=== PATIENT | female | born 1995 | race African-American/Black ===

== ENCOUNTER 2022-11-05 05:54 | Emergency (ER) | payer SELFPAY ==
[2022-11-05] VITALS (14 sets, daily range): BP systolic 108–141; BP diastolic 66–82; PULSE 64–99; RESP 16–31; TEMP 36.6; O2SAT 96–100
--- NOTE | ~2022-11-05 | XR_ITS ---
EXAMINATION: XR chest 2V DATE: 11/05/2022 06:30 INDICATION: Left-sided chest pain TECHNIQUE: PA and lateral views of the chest are obtained. COMPARISON: None available FINDINGS: The lungs are free of acute opacities. No pleural effusion or pneumothorax. The cardiomedia stinal silhouette is normal. The visualized bones and soft tissues are unremarkable. IMPRESSION: 1. No acute cardiopulmonary abnormality. Reviewed, dictated and finalized at location A.
--- NOTE | 2022-11-05 05:56 | ECG_ITS ---
Measurements Intervals [place] Rate: 112 P: 60 NE: 142 QRS: 26 QRSD: 113 T: 32 QT: 328 QTc: 450 Interpretive Statements SINUS TACHYCARDIA NO PREVIOUS ECG AVAILABLE FOR COMPARISON Electronically Signed On 11-05-2022 12:16:41 CDT by Dayana Givens M.D.
[2022-11-05 06:12] LABS: Basophils Percent Auto 0.4 % (0.2-1.2); Eosinophils Absolute Auto 0.2 K/mm3 (0-0.3); Eosinophils Percent Auto 1.4 % (0-4.4); Hematocrit 41.1 % (37.0-47.0); Hemoglobin 14.1 g/dL (12.0-15.0); Immature Granulocyte Absolute 0.03 K/mm3 (0.00-0.031); Immature Granulocyte Percent A 0.3 % (0-0.5); Lymphocytes Absolute Auto 4.56 K/mm3 (0.9-3.2); Lymphocytes Percent Auto 41.1 % (18.3-44.2); Mean Corpuscular HGB Conc 34.3 g/dl (32-36); Mean Corpuscular Hemoglobin 31.4 pg (26-34); Mean Corpuscular Volume 91.5 fl (80-100); Mean Platelet Volume 9.2 fl (7.4-10.4); Monocytes Absolute Auto 0.6 K/mm3 (0.1-0.6); Monocytes Percent Auto 5.4 % (2.6-8.5); Neutrophils Absolute Auto 5.7 K/mm3 (1.3-6.7); Neutrophils Percent Auto 51.4 % (45.5-73.1); Platelet Count Result 327 k/mm3 (150-375); Red Blood Count 4.49 M/mm3 (4.2-5.4); Red Cell Distribution Width 11.4 % (11.5-14.5); White Blood Count 11.1 K/mm3 (4.5-10.0)
[2022-11-05 06:26] LABS: Alanine Aminotransferase 21 U/L (6-35); Albumin Level 4.8 g/dL (3.5-5.1); Alkaline Phosphatase 44 U/L (38-126); Anion Gap 11 mmol/L (8-16); Aspartate Amino Transferase 20 U/L (14-36); Bilirubin,Total 0.4 mg/dL (0.2-1.3); Blood Urea Nitrogen 12 mg/dL (7-17); Calcium 9.5 mg/dL (8.4-10.2); Carbon Dioxide 23 mmol/L (22-30); Chloride 103 mmol/L (98-107); Estimated CRCL calculation 94 ml/min; Estimated Glomerular Filt Rate > 60; Glucose 145 mg/dL (65-110); Lipase 148 U/L (23-300); Potassium 3.3 mmol/L (3.4-5.0); Sodium 137 mmol/L (137-145)
[2022-11-05 06:38] LABS: Troponin I < 0.012 ng/mL (0.000-0.034)
[2022-11-05] MEDS: ASPIRIN 81 MG CHEWABLE TABLET 324 MG PO (06:54)
[2022-11-05] MEDS: POTASSIUM CHLORIDE 20 MEQ PACKET (FOR LIQUID) 40 MEQ PO (07:31)
--- NOTE | 2022-11-05 07:42 | ED.CHESTPAIN ---
HPI - Chest Pain General Chief Complaint: Chest Pain Stated Complaint: chest pain x3 days Time Seen by Provider: 11/05/22 07:00 History of Present Illness HPI narrative: 27-year-old female presented to the emergency department for evaluation of left-sided chest pain. Patient states few days ago she was having some left-sided chest pressure. Patient states that she has had intermittent worsening left-sided chest pain. Patient states she also does have a history of anxiety and due to concern over her acute illness she has had increased anxiety attacks. Patient has no prior history of PE or DVT. Patient states she has had some lower calf pain intermittently. Patient denies being on any form of hormone replacement or control. Patient has no prior history of cancer. Related Data Allergies Allergy/AdvReac Type Severity Reaction Status Date / Time No Known Allergies Allergy Verified 11/05/22 06:57 Review of Systems Review of Systems: All systems reviewed & are unremarkable except as noted in HPI and below Exam Narrative: APPEARANCE: Well appearing, no pain, no distress, well-nourished. HEAD: normocephalic, atraumatic. EYES: PERRLA/EOMI, conjunctivae clear. NOSE: Normal no drainage NECK: Supple. No adenopathy, no masses. RESPIRATORY: Airway patent, respirations nonlabored. Clear to auscultation bilaterally, no rales, rhonchi, wheezing. CARDIOVASCULAR: Regular rate and rhythm without murmurs rubs or gallops. To palpation ABDOMINAL: Soft, nontender, nondistended, normal bowel sounds MUSCULOSKELETAL: Moves all extremities. Strength/ROM intact, No edema, No calf tenderness. NEURO: Alert. Cranial nerves II through XII intact. Grossly intact SKIN: Warm, dry. Normal Color Course Course Emergency Course: 27-year-old female presented to the emergency department for evaluation of left-sided chest pain that radiates down her left arm. X-ray was ordered to evaluate for pneumonia pneumothorax and chest x-ray is normal-appearing. EKG was ordered to evaluate for evidence of cardiac arrhythmia or ACS and EKG shows no evidence acute STEMI. D-dimer was ordered to evaluate for risk of pulmonary embolism. At time of evaluation patient has been treated with aspirin but is declining needing any additional medications for pain control or for anxiety control. Patient was updated on the pending work-up. EKG showed normal sinus rhythm. Patient is afebrile with no leukocytosis. Patient's D-dimer was not elevated. Patient's potassium was 3.0 this was replaced orally. Patient had delta troponins that were negative. Chest x-ray shows no acute cardiopulmonary normality. Lipase was negative. Patient was updated on the results of the work-up and was encouraged of close follow-up with her primary care physician. Vital Signs Vital signs: Vital Signs Temperature 98 F 11/05/22 06:08 Pulse Rate 99 11/05/22 06:08 Respiratory Rate 20 11/05/22 06:08 Blood Pressure 141/82 H 11/05/22 06:08 Pulse Oximetry 100 11/05/22 06:08 Oxygen Delivery Room Air 11/05/22 06:08 Temperature 98 F 11/05/22 06:08 Pulse Rate 80 11/05/22 10:15 Respiratory Rate 16 11/05/22 10:15 Blood Pressure 108/66 11/05/22 10:15 Pulse Oximetry 100 11/05/22 10:15 Oxygen Delivery Room Air 11/05/22 06:08 MDM - Chest Pain Differential Diagnosis Differential diagnosis: Likely pneumothorax, stable angina, atypical chest pain, costochondritis, chest pain and biliary colic Lab Data Attestation: I reviewed the patient's lab results. 11/05/22 06:05 11/05/22 06:05 Labs: Lab Results 11/05/22 11/05/22 Range/Units 06:05 08:49 WBC 11.1 H (4.5-10.0) K/mm3 RBC 4.49 (4.2-5.4) M/mm3 Hgb 14.1 (12.0-15.0) g/dL Hct 41.1 (37.0-47.0) % MCV 91.5 (80-100) fl MCH 31.4 (26-34) pg MCHC 34.3 (32-36) g/dl RDW 11.4 L (11.5-14.5) % Plt Count 327 (150-375) k/mm3 MPV 9.2 (7.4-10.4) fl
[2022-11-05 08:53] LABS: Magnesium 1.9 mg/dL (1.6-2.3)
[2022-11-05 09:09] LABS: Prothrombin Time 13.3 Seconds (11.1-14.7)
[2022-11-05 09:23] LABS: Troponin I 0.013 ng/mL (0.000-0.034)
[2022-11-05 09:56] LABS: D Dimer 0.32 ug/mL (<0.48)
== END 2022-11-05 10:15 | disposition home or self-care (01) ==
PROVIDERS: Preventive Medicine Aerospace Medicine; Emergency Provider Emergency Medicine
DX: R07.89 Other chest pain (principal); F41.9 Anxiety disorder, unspecified
CPT/HCPCS: 36415; 71046; 80053; 83690; 83735; 84443; 84484; 85025; 85380; 85610; 85730; 93005; 99284; A9270

== ENCOUNTER 2023-08-04 00:31 | Emergency (ER) | payer SELFPAY ==
--- NOTE | 2023-08-04 | ECG_ITS ---
Measurements Intervals [place] Rate: 151 P: 68 [place]: 132 QRS: 15 QRSD: 83 T: 54 QT: 303 QTc: 482 Interpretive Statements SINUS TACHYCARDIA DELAYED PRECORDIAL R/S TRANSITION NONSPECIFIC ST-T WAVE ABNORMALITY- INF/HIGH LAT LEADS BASELINE WANDER- I, III, AVL, AVF, V3 ABNORMAL ECG COMPARED TO ECG 11/05/2022 06:00:10 HEART RATE HAS INCREASED Electronically Signed On 08-04-2023 6:41:46 BUSINESS CHANGE MANAGER by Nick Erwin D.O.
--- NOTE | ~2023-08-04 | XR_ITS ---
Clinical Indication: Chest pain PA and lateral views of the chest: Comparison: 11/05/2022 Findings: The lungs are clear, without evidence of focal consolidation or pleural effusion. Cardiome diastinal silhouette is within normal limits. Bones and soft tissues are unremarkable. Impression: Normal chest. Reviewed, dictated and finalized at [facility]. COATER Impression: Normal chest.
--- NOTE | ~2023-08-04 | CT_ITS ---
Clinical Indication: Chest pain, shortness of breath CT Scan of the Chest, Abdomen, and Pelvis with Contrast: Technique: Contiguous sections were acquired throughout the chest, abdomen, and pelvis after intraven ous administration of 100 cc of Omnipaque 350. Dose reduction technique was used on this scan by ruth mcclouding automated exposure control and iterative reconstruction technique. The dose-length product (DL P) was 1144.67 mGy-cm. Findings: There is no evidence of any significant mediastinal, hilar or axillary lymphadenopathy. The mediastin al soft tissues appear normal. No pulmonary embolus identified. No aortic aneurysm or dissection. There is no evidence of pleural or pericardial effusion. The lungs are clear. No pulmonary nodules or infiltrates are noted. The liver, pancreas, gallbladder, adrenals and kidneys are within normal limits. Splenic cystic lesio n noted. No evidence of aortic aneurysm. No lymphadenopathy. No bowel obstruction or bowel wall thickening. There is no evidence to suggest acute appendicitis. Urinary bladder is unremarkable. No pelvic mass seen. No ascites. Impression: No significant abnormalities seen. Reviewed, dictated and finalized at [facility]. ICATION DEVELOPMENT INTERN Impression: No significant abnormalities seen.
[2023-08-04 00:35] VITALS: BP 146/113; PULSE 154; RESP 18; TEMP 36.8; O2SAT 100
--- NOTE | 2023-08-04 00:35 | ECG_ITS ---
Measurements Intervals [place] Rate: 89 P: 40 [place]: 148 QRS: 6 QRSD: 89 T: 40 QT: 356 QTc: 435 Interpretive Statements SINUS RHYTHM NORMAL ECG COMPARED TO ECG 11/05/2022 06:00:10 SINUS RHYTHM NOW PRESENT Electronically Signed On 08-04-2023 6:17:16 CELLULAR EQUIPMENT REPAIRER by Nick Erwin D.O.
[2023-08-04 00:54] VITALS: PULSE 120
[2023-08-04 00:55] VITALS: O2SAT 100
[2023-08-04 00:58] VITALS: BP 120/71; PULSE 115; RESP 30; TEMP 36.6; O2SAT 100
[2023-08-04 01:01] LABS: Basophils Percent Auto 0.5 % (0.2-1.2); Eosinophils Absolute Auto 0.1 K/mm3 (0-0.3); Eosinophils Percent Auto 1.3 % (0-4.4); Hematocrit 43.4 % (37.0-47.0); Hemoglobin 14.6 g/dL (12.0-15.0); Immature Granulocyte Absolute 0.02 K/mm3 (0.00-0.031); Immature Granulocyte Percent A 0.2 % (0-0.5); Lymphocytes Absolute Auto 2.98 K/mm3 (0.9-3.2); Lymphocytes Percent Auto 35.4 % (18.3-44.2); Mean Corpuscular HGB Conc 33.6 g/dl (32-36); Mean Corpuscular Hemoglobin 30.7 pg (26-34); Mean Corpuscular Volume 91.4 fl (80-100); Mean Platelet Volume 9.3 fl (7.4-10.4); Monocytes Absolute Auto 0.4 K/mm3 (0.1-0.6); Monocytes Percent Auto 5.1 % (2.6-8.5); Neutrophils Absolute Auto 4.8 K/mm3 (1.3-6.7); Neutrophils Percent Auto 57.5 % (45.5-73.1); Platelet Count Result 408 k/mm3 (150-375); Red Blood Count 4.75 M/mm3 (4.2-5.4); Red Cell Distribution Width 11.2 % (11.5-14.5); White Blood Count 8.4 K/mm3 (4.5-10.0)
[2023-08-04 01:11] LABS: Alanine Aminotransferase 63 U/L (6-35); Albumin Level 4.9 g/dL (3.5-5.1); Alkaline Phosphatase 63 U/L (38-126); Anion Gap 18 mmol/L (8-16); Aspartate Amino Transferase 27 U/L (14-36); Bilirubin,Total 0.4 mg/dL (0.2-1.3); Blood Urea Nitrogen 8 mg/dL (7-17); Calcium 9.7 mg/dL (8.4-10.2); Carbon Dioxide 20 mmol/L (22-30); Chloride 101 mmol/L (98-107); Estimated CRCL calculation 75 ml/min; Estimated Glomerular Filt Rate > 60; Glucose 239 mg/dL (65-110); INR 0.9; Lipase 1044 U/L (23-300); Potassium 3.3 mmol/L (3.4-5.0); Prothrombin Time 12.1 Seconds (11.1-14.7); Sodium 139 mmol/L (137-145)
[2023-08-04 01:12] LABS: Partial Thromboplastin Time 25.4 SECONDS (22.3-36.8)
[2023-08-04 01:22] LABS: Troponin I < 0.012 ng/mL (0.000-0.034)
[2023-08-04] MEDS: ASPIRIN 81 MG CHEWABLE TABLET 324 MG PO (01:44)
[2023-08-04] MEDS: LORazepam INJ (*CRX) 2 MG/ML VIAL 1 MG IV PUSH (01:56)
[2023-08-04 02:30] VITALS: BP 110/72; PULSE 62; RESP 16; O2SAT 99
[2023-08-04 04:11] LABS: Troponin I 0.016 ng/mL (0.000-0.034)
[2023-08-04 04:26] VITALS: BP 109/62; PULSE 92; RESP 14; O2SAT 98
--- NOTE | 2023-08-04 04:30 | ED.GENADULT ---
HPI - General Adult General Chief complaint: Chest Pain Stated complaint: chest tightness and can't breathe Time Seen by Provider: 08/04/23 00:46 History of Present Illness HPI narrative: vision 28-year-old female who presents emergency department with chief complaint of shortness of breath palpitations. Patient reports that she started feeling very anxious and noticed that her heart is beating fast. Patient reports she has also had some epigastric and chest discomfort as well. Patient reports she had a similar episode a few months ago Related Data Allergies Allergy/AdvReac Type Severity Reaction Status Date / Time No Known Allergies Allergy Verified 11/05/22 06:57 Review of Systems Review of Systems: A 10 system review of systems was completed on the patient and is negative except for what is stated in the HPI. Nursing and ancillary documentation was reviewed. Exam Narrative: GENERAL: Well-appearing, well-nourished, and in no acute distress. HEAD: Normocephalic, atraumatic. EYES: PERRLA and EOMI. ENT: Nares clear, no rhinorrhea or epistaxis. Mucous membranes moist. NECK: Supple. CHEST: Clear to auscultation. No respiratory distress. HEART: Regular rate and rhythm. No murmur heard. Normal peripheral pulses. ABDOMEN: Soft, nontender, nondistended, normal active bowel sounds. EXTREMITIES: Normal range of motion. No edema. SKIN: Warm, dry, no rash. NEURO: No focal deficits. Alert and oriented x3. PSYCH: Normal mood and affect. Course Vital Signs Vital signs: Vital Signs Temperature 36.8 C 08/04/23 00:35 Pulse Rate 154 H 08/04/23 00:35 Respiratory Rate 18 08/04/23 00:35 Blood Pressure 146/113 H 08/04/23 00:35 Pulse Oximetry 100 08/04/23 00:35 Oxygen Delivery Room Air 08/04/23 00:35 Temperature 36.6 C 08/04/23 00:58 Pulse Rate 92 08/04/23 04:26 Respiratory Rate 14 08/04/23 04:26 Blood Pressure 109/62 08/04/23 04:26 Pulse Oximetry 98 08/04/23 04:26 Oxygen Delivery Room Air 08/04/23 00:55 Medical Decision Making MDM Narrative Medical decision making narrative: differential diagnosis includes ACS, dysrhythmia, electrolyte abnormality, dehydration, pancreatitis laboratory studies were obtained on the patient which showed normal CBC CMP was within normal limits potassium was little low at 3.3 glucose was 239 initial troponin was negative lipase was 1044 this is concerning for possible pancreatitis although it is only slightly elevated. CT scan will be obtained to evaluate for possible pancreatitis. Repeat troponin was 0.016 and is still below the positive cut off. CTA chest was done to perform for possible pulmonary embolism showed no evidence of PE. CT scan of the abdomen pelvis showed no evidence of acute pancreatitis or acute intra-abdominal pathology. Vital Signs Vital Signs: Vital Signs Temperature 36.8 C 08/04/23 00:35 Pulse Rate 154 H 08/04/23 00:35 Respiratory Rate 18 08/04/23 00:35 Blood Pressure 146/113 H 08/04/23 00:35 Pulse Oximetry 100 08/04/23 00:35 Oxygen Delivery Room Air 08/04/23 00:35 Temperature 36.6 C 08/04/23 00:58 Pulse Rate 92 08/04/23 04:26 Respiratory Rate 14 08/04/23 04:26 Blood Pressure 109/62 08/04/23 04:26 Pulse Oximetry 98 08/04/23 04:26 Oxygen Delivery Room Air 08/04/23 00:55 Lab Data 08/04/23 00:56 08/04/23 00:56 Labs: Lab Results 08/04/23 08/04/23 Range/Units 00:56 03:41 WBC 8.4 (4.5-10.0) K/mm3 RBC 4.75 (4.2-5.4) M/mm3 Hgb 14.6 (12.0-15.0) g/dL Hct 43.4 (37.0-47.0) % MCV 91.4 (80-100) fl MCH 30.7 (26-34) pg MCHC 33.6 (32-36) g/dl RDW 11.2 L (11.5-14.5) % Plt Count 408 H (150-375) k/mm3 MPV 9.3 (7.4-10.4) fl Immature Gran % (Auto) 0.2 (0-0.5) % Neut % (Auto) 57.5 (45.5-73.1) % Lymph % (Auto) 35.4 (18.3-44.2) % [place] % (Auto) 5.1 (2.6-8.5) % Eos % (Auto) 1.3 (
== END 2023-08-04 04:58 | disposition home or self-care (01) ==
PROVIDERS: Emergency Provider Emergency Medicine
DX: R00.2 Palpitations (principal); R74.8 Abnormal levels of other serum enzymes; R00.0 Tachycardia, unspecified; R94.31 Abnormal electrocardiogram [ECG] [EKG]
CPT/HCPCS: 36415; 71046; 71275; 74177; 80053; 81025; 83690; 84484; 85025; 85610; 85730; 93005; 96374; 99284; A9270; J2060; Q9967

== ENCOUNTER 2024-03-31 23:10 | Emergency (ER) | payer SELFPAY ==
--- NOTE | ~2024-03-31 | XR_ITS ---
Portable chest x-ray Comparison: 08/04/2023 Clinical History: Cough Findings: Lungs are clear, without focal consolidation or pleural effusion. Cardiomediastinal silho uette is stable. Bones and soft tissues are unremarkable. Impression: Normal chest. Reviewed, dictated and finalized at location . Impression: Normal chest.
--- NOTE | 2024-03-31 23:17 | ECG_ITS ---
Test Date: 2024-03-31 23:23:49 Measurements Intervals [place] Rate: 120 P: 46 [place]: 153 QRS: -3 QRSD: 95 T: 33 QT: 322 QTc: 457 Interpretive Statements SINUS TACHYCARDIA DELAYED PRECORDIAL R/S TRANSITION MINIMAL Q WAVES- HIGH LATERAL LEADS BASELINE ARTIFACT- I, II, AVR ABNORMAL ECG No previous ECG available for comparison Electronically Signed On 04-01-2024 06:30:34 CDT by Nick Erwin D.O.
[2024-03-31 23:20] VITALS: BP 136/88; PULSE 123; RESP 20; TEMP 37.9; O2SAT 99
[2024-03-31 23:53] VITALS: PULSE 114
[2024-04-01] MEDS: SODIUM CHLORIDE 0.9% IV 1,000 ML 999 ML IV CONT (00:55)
[2024-04-01 01:03] LABS: Basophils Percent Auto 0.6 % (0.2-1.2); Eosinophils Absolute Auto 0.2 K/mm3 (0-0.3); Eosinophils Percent Auto 2.4 % (0-4.4); Hematocrit 37.9 % (37.0-47.0); Hemoglobin 12.9 g/dL (12.0-15.0); Immature Granulocyte Absolute 0.01 K/mm3 (0.00-0.031); Immature Granulocyte Percent A 0.2 % (0-0.5); Lymphocytes Absolute Auto 0.94 K/mm3 (0.9-3.2); Lymphocytes Percent Auto 14.8 % (18.3-44.2); Mean Corpuscular Hemoglobin 31.5 pg (26-34); Mean Corpuscular Volume 92.7 fl (80-100); Mean Platelet Volume 9.4 fl (7.4-10.4); Monocytes Absolute Auto 0.8 K/mm3 (0.1-0.6); Monocytes Percent Auto 11.8 % (2.6-8.5); Neutrophils Absolute Auto 4.4 K/mm3 (1.3-6.7); Neutrophils Percent Auto 70.2 % (45.5-73.1); Platelet Count Result 246 k/mm3 (150-375); Red Blood Count 4.09 M/mm3 (4.2-5.4); Red Cell Distribution Width 11.5 % (11.5-14.5); White Blood Count 6.3 K/mm3 (4.5-10.0)
[2024-04-01 01:12] LABS: Alanine Aminotransferase 28 U/L (6-35); Albumin Level 4.1 g/dL (3.5-5.1); Alkaline Phosphatase 43 U/L (38-126); Anion Gap 10 mmol/L (4-12); Aspartate Amino Transferase 27 U/L (14-36); Bilirubin,Total < 0.1 mg/dL (0.2-1.3); Blood Urea Nitrogen 12 mg/dL (7-17); Calcium 9.2 mg/dL (8.4-10.2); Carbon Dioxide 26 mmol/L (22-30); Chloride 102 mmol/L (98-107); Estimated CRCL calculation 84 ml/min; Estimated Glomerular Filt Rate > 60; Glucose 95 mg/dL (65-110); Magnesium 1.8 mg/dL (1.6-2.3); Potassium 3.5 mmol/L (3.4-5.0); Sodium 138 mmol/L (137-145)
[2024-04-01 01:24] LABS: Troponin I < 0.012 ng/mL (0.000-0.034)
[2024-04-01 01:28] LABS: Strep Group A RT-PCR NOT DETECTED (Negative)
[2024-04-01 01:39] LABS: Influenza A QL RT-PCR Negative (Negative); Influenza B QL RT-PCR Negative (Negative); RSV RNA, RT-PCR Negative (Negative); SARS-CoV-2 RNA PCR Positive (Negative)
[2024-04-01] MEDS: POTASSIUM CHLORIDE 20 MEQ PACKET (FOR LIQUID) 40 MEQ PO (02:07)
[2024-04-01] MEDS: MAGNESIUM SULF 1 GM/D5W 100 ML 1 GM/100 ML BAG IVPB (02:07)
--- NOTE | 2024-04-01 02:39 | ED.GENADULT ---
HPI - General Adult General Chief complaint: Arrhythmia/Palpitations Stated complaint: HR in 200s, left arm pain Time Seen by Provider: 04/01/24 00:26 History of Present Illness HPI narrative: Patient is a 28-year-old female presents emergency department with chief complaint of not feeling well. The patient reports he also had palpitations evening and knows that her what she was saying heart rate was in the 200s upon arrival the emergency department patient's heart rate was in the 100s patient reports that she had some nausea vomiting prior to arrival had a sore throat and just generally felt unwell. Related Data Allergies Allergy/AdvReac Type Severity Reaction Status Date / Time No Known Allergies Allergy Verified 11/05/22 06:57 Review of Systems Review of Systems: A 10 system review of systems was completed on the patient and is negative except for what is stated in the HPI. Nursing and ancillary documentation was reviewed. Exam Narrative: GENERAL: Well-appearing, well-nourished, and in no acute distress. HEAD: Normocephalic, atraumatic. EYES: PERRLA and EOMI. ENT: Nares clear, no rhinorrhea or epistaxis. Mucous membranes moist. NECK: Supple. CHEST: Clear to auscultation. No respiratory distress. HEART: Regular rate and rhythm. No murmur heard. Normal peripheral pulses. ABDOMEN: Soft, nontender, nondistended, normal active bowel sounds. EXTREMITIES: Normal range of motion. No edema. SKIN: Warm, dry, no rash. NEURO: No focal deficits. Alert and oriented x3. PSYCH: Normal mood and affect. Course Vital Signs Vital signs: Vital Signs Temperature 37.9 C H 03/31/24 23:20 Pulse Rate 123 H 03/31/24 23:20 Respiratory Rate 03/31/24 23:20 Blood Pressure 136/88 03/31/24 23:20 Pulse Oximetry 99 03/31/24 23:20 Oxygen Delivery Room Air 03/31/24 23:20 Temperature 37.9 C H 03/31/24 23:20 Pulse Rate 114 H 03/31/24 23:53 Respiratory Rate 03/31/24 23:20 Blood Pressure 136/88 03/31/24 23:20 Pulse Oximetry 99 03/31/24 23:20 Oxygen Delivery Room Air 03/31/24 23:20 Medical Decision Making MDM Narrative Medical decision making narrative: Differential diagnosis includes viral illness, pneumonia, electrolyte abnormality, dehydration, palpitations, dysrhythmia EKG showed no acute dysrhythmia Chest x-ray showed no focal infiltrate Laboratory studies showed a magnesium of 1.8 potassium was 3.5 the patient was given 1 g of IV magnesium and 40 mEq of p.o. potassium COVID test was positive Troponin was negative Vital Signs Vital Signs: Vital Signs Temperature 37.9 C H 03/31/24 23:20 Pulse Rate 123 H 03/31/24 23:20 Respiratory Rate 20 03/31/24 23:20 Blood Pressure 136/88 03/31/24 23:20 Pulse Oximetry 99 03/31/24 23:20 Oxygen Delivery Room Air 03/31/24 23:20 Temperature 37.9 C H 03/31/24 23:20 Pulse Rate 114 H 03/31/24 23:53 Respiratory Rate 03/31/24 23:20 Blood Pressure 136/88 03/31/24 23:20 Pulse Oximetry 99 03/31/24 23:20 Oxygen Delivery Room Air 03/31/24 23:20 Lab Data 04/01/24 00:55 04/01/24 00:55 Labs: Lab Results 04/01/24 04/01/24 04/01/24 Range/Units 00:54 00:55 00:56 WBC 6.3 (4.5-10.0) K/mm3 RBC 4.09 L (4.2-5.4) M/mm3 Hgb 12.9 (12.0-15.0) g/dL Hct 37.9 (37.0-47.0) % MCV 92.7 (80-100) fl MCH 31.5 (26-34) pg MCHC 34.0 (32-36) g/dl RDW 11.5 (11.5-14.5) % Plt Count 246 (150-375) k/mm3 MPV 9.4 (7.4-10.4) fl Immature Gran % (Auto) 0.2 (0-0.5) % Neut % (Auto) 70.2 (45.5-73.1) % Lymph % (Auto) 14.8 L (18.3-44.2) % [place] % (Auto) 11.8 H (2.6-8.5) % Eos % (Auto) 2.4 (0-4.4) % Baso % (Auto) 0.6 (0.2-1.2) % Lymph # (Auto) 0.94 (0.9-3.2) K/mm3 [place] # (Auto) 0.8 H (0.1-0.6) K/mm3 Eos # (Auto) 0.2 (0-0.3) K/mm3 Baso # (Auto) 0.0 (0.0-0.1) K/mm3 Abs Immat Gran (auto) 0.01 (0.0
[2024-04-01 03:09] VITALS: BP 131/78; PULSE 81; RESP 18; TEMP 36.7; O2SAT 99
== END 2024-04-01 03:10 | disposition home or self-care (01) ==
PROVIDERS: Emergency Provider Emergency Medicine
DX: U07.1 COVID-19 (principal); R00.2 Palpitations
CPT/HCPCS: 36415; 71045; 80053; 83735; 84443; 84484; 85025; 87637; 87651; 93005; 96361; 96365; 99284; A9270; J3475; J7030